=== PATIENT | female | born 1960 | race Caucasian/White ===

== ENCOUNTER → 2016-07-07 | Outpatient (CLI) | payer MEDICARE ==
[~2016-07-07] MED LIST: ALBUTEROL17 GM INH; ALPRAZOLAM PO; ASPIRIN81 M2 PO; ASPIRINEC PO; BACTRIM DS TABL1 TAB PO; BENADRYL25 M3 PO; DIAZEPAM PO; FLORINEF0.1 MG PO; FLUOXETINE HCL20 M1 PO; GABAPENTIN300 M2 PO; KCL PO; KEFLEX PO; LASIX PO; LIPITOR PO; OYSTER CALCIUM500 MG PO; PROZAC PO; VICODIN 5/500 T1 TAB PO; ZANTAC PO
--- NOTE | ~2016-07-07 | MY11 ---
[facility] A Service of [facility] RADIOLOGY TEXT RESULTS PATIENT: MATTHEW BENAVIDEZ LOCATION: [facility] : 58 UNIT #: [id number] AGE: [address]: Quintin Puckett MD SEX: F ORDER DR: [id number] [facility] [address] [place], [place] [address] [id number] O MR#: [id number] Acc #: [id number] NAME: MATTHEW BENAVIDEZ : 1960 SEX: F STUDY DATE/TIME: 07/07/2016 13:05 UNIT: [facility] ROOM: STUDY DESCRIPTION: MY Mammogram Screening Dig [place] Attending Physician: Quintin Puckett M.D. Referring Physician: Quintin Puckett M.D. Ordering Physician: Quintin Puckett M.D. Primary Care Physician: Quintin Puckett M.D. MEDICAL IMAGING REPORT This report is preliminary unless electronic signature is present EXAM Digital screening mammogram 07/07/2016. [facility] HISTORY 55-year-old woman strong family history, sister age 43. Annual scree. COMPARISON: Mammograms now available 05/15/2010, 01/09/2014 from [facility]. FINDINGS Digital imaging of each breast was completed utilizing a two-view examination of each breast in craniocaudal and mediolateral-oblique projections. Review and interpretation of digital mammograms include a second review in conjunction with FDA-approved CAD device. There is a normal parenchymal presentation bilaterally consistent with the patient's age. There are no breast masses imaged and no parenchymal asymmetry is visualized. There are no suspicious microcalcifications and I see no focal architectural disturbance. IMPRESSION Negative screening digital mammogram. One-year followup recommended. Patients over the age of 40 are entered into a reminder system with target due date for the next mammogram. A result letter will also be sent to the patient. BIRADS: 1 Negative Dictated by... [facility] A Service of [facility] RADIOLOGY TEXT RESULTS PATIENT: MATTHEW BENAVIDEZ [id number] 58 UNIT #: [id number] AGE: [address]: Quintin Puckett MD SEX: F ORDER DR: Claudio Schmitt M.D. THIS IS AN ELECTRONICALLY VERIFIED REPORT Claudio Schmitt M.D. at 07/08/2016 2:05 PM NESTOR/gonzalez TD: 07/08/2016 13:56 JOB #: [id number] MEDICAL IMAGING REPORT Page 1 of 1 COPY
== END | disposition home or self-care (01) ==
LOC: CWCC 12:33
DX: Z12.31 Encounter for screening mammogram for malignant neoplasm of breast (principal); Z80.3 Family history of malignant neoplasm of breast
CPT/HCPCS: G0202

== ENCOUNTER → 2016-09-25 | Day surgery (SDC) | payer MEDICARE, OTHER ==
--- NOTE | ~2016-09-25 | OR ---
Unit #: [id number] #: [id number] Patient: MATTHEW BENAVIDEZ [id number] [address] [address] [id number] O MR#: [id number] NAME: MATTHEW BENAVIDEZ ROOM: Date of Procedure: 09/25/2016 Admission Date: 09/25/2016 Surgeon: Yoni Nuñez M.D. : 1960 Attending Physician: Yoni Nuñez M.D. Primary Care Physician: Quintin Puckett M.D. OPERATIVE REPORT JOB NOTE: CC: PRIMARY CARE PHYSICIAN PROCEDURE PERFORMED Colonoscopy to cecum. INDICATIONS FOR PROCEDURE A 55-year-old, brother with colon cancer, personal history of polyps. MEDICATIONS Monitored Anesthesia. POSTOPERATIVE FINDINGS 1. Colonoscopy completed to cecum. 2. Prep was poor leading to some areas not well visualized and suboptimal exam. 3. No polyps, masses, or colitis was seen. PLAN Repeat colonoscopy in 5 years. DESCRIPTION OF PROCEDURE The patient was explained of the procedure, risks, and benefits along with the risks and benefits of anesthesia. She was brought to the endoscopy room. Propofol anesthesia was given. Rectal exam was done, which was normal. Colonoscope was lubricated, passed up the rectum, advanced under direct vision all the way to the cecum. Cecum was identified by ileocecal valve and appendiceal orifice. I then started to pull the scope out carefully looking. No polyps, masses, or colitis was seen. Mucosa was normal and healthy. Prep was poor. I retroflexed in the rectum, small hemorrhoids seen. The scope was gently pulled out. She tolerated it well. Dictated by... Romelia Pearson/grant TD: 09/25/2016 18:58 JOB #: [id number] Unit #: [id number] #: [id number] Patient: MATTHEW BENAVIDEZ OPERATIVE REPORT Page 1 of 1 X Yoni Nuñez MD PROCEDURE OPERATIVE NOTE
== END | disposition home or self-care (01) ==
LOC: COPS 08:30
DX: Z12.11 Encounter for screening for malignant neoplasm of colon (principal); J44.9 Chronic obstructive pulmonary disease, unspecified; F17.210 Nicotine dependence, cigarettes, uncomplicated; I25.2 Old myocardial infarction; Z86.010 Personal history of colon polyps; Z80.0 Family history of malignant neoplasm of digestive organs; Z88.5 Allergy status to narcotic agent; Z88.8 Allergy status to other drugs, medicaments and biological substances; Z95.0 Presence of cardiac pacemaker; Z98.890 Other specified postprocedural states; Z79.899 Other long term (current) drug therapy; Z79.82 Long term (current) use of aspirin
CPT/HCPCS: J2250